=== PATIENT | male | born 1990 | race Two or more races ===

== ENCOUNTER 2018-07-04 12:51 | Emergency (ER) | payer BC, OTHER ==
[~2018-07-04] VITALS: Ht 180.3 cm; Wt 87.1 kg
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
--- NOTE | 2018-07-04 13:34 | NUR ---
FOSTER PA AT BEDSIDE FOR EVAL.
[2018-07-04] MEDS ORDERED: KETOROLAC TROMETHAMINE INJ 60 MG/2 ML VIAL IM ONE ×2 (13:38→14:00)
--- NOTE | 2018-07-04 13:43 | NUR ---
RADIOLOGY AT BEDSIDE FOR R KNEE XRAY.
--- NOTE | 2018-07-04 15:15 | NUR ---
Patient discharged to home in stable condition. Written and verbal after care instructions given. Patient verbalizes understanding of instruction.
[2018-07-04 15:31] VITALS: BP 150/99
== END 2018-07-04 15:15 | disposition home or self-care (01) ==
LOC: ER 12:53
DX: S46.811A Strain of other muscles, fascia and tendons at shoulder and upper arm level, right arm, initial encounter (principal); S80.01XA Contusion of right knee, initial encounter; S20.211A Contusion of right front wall of thorax, initial encounter; M54.5 Low back pain; V49.49XA Driver injured in collision with other motor vehicles in traffic accident, initial encounter; Y93.89 Activity, other specified; Y92.410 Unspecified street and highway as the place of occurrence of the external cause; Y99.8 Other external cause status
CPT/HCPCS: 73564; 96372; 99283; J1885

== ENCOUNTER 2019-01-12 13:05 | Outpatient (CLI) | payer BC, OTHER ==
[2019-01-12 13:19] VITALS: BP 146/101
[2019-01-12 14:19] LABS: BASOPHILS # (AUTO) 0.1 /CMM (0.0-0.2); BASOPHILS % (AUTO) 0.9 % (0.0-2.0); EOSINOPHILS % (AUTO) 1.3 % (0.0-6.0); HEMATOCRIT 50 % (39-51); HEMOGLOBIN 17.9 g/dL (13.5-17.5); LYMPHOCYTES % (AUTO) 28.2 % (20.0-44.0); MEAN CORPUSCULAR HGB CONC 36 g/dl (31.0-36.0); MEAN CORPUSCULAR VOLUME 87 fL (80-96); MONOCYTES % (AUTO) 13.9 % (2.0-12.0); NEUTROPHILS # (AUTO) 3.8 /CMM (1.8-8.9); NEUTROPHILS % (AUTO) 55.7 % (43.0-81.0); PLATELET COUNT (AUTO) 224 /CMM (150-450); RED BLOOD CELL COUNT(AUTO) 5.78 MIL/uL (4.5-6.0); WHITE BLOOD COUNT (AUTO) 6.9 K/uL (4.3-11.0)
[2019-01-12 14:34] LABS: ALBUMIN 4.4 g/dL (3.4-5.0); BILIRUBIN,DIRECT 0.2 mg/dL (0.0-0.2); BILIRUBIN,TOTAL 0.7 mg/dL (0.2-1.0); CALCIUM, SERUM 9.4 mg/dL (8.5-10.1); CREATININE 1.1 mg/dL (0.6-1.3); TOTAL PROTEIN, SERUM 8.1 g/dL (6.4-8.2)
[2019-01-12 14:45] LABS: THYROID STIMULATING HORMONE 1.316 uIU/mL (0.358-3.74)
[2019-01-13 04:06] LABS: HIV SCRN 4G wRFX Non Reactive (Non Reactive)
[2019-01-23 14:58] LABS: *MUMPS AB (IGG) <9.0; RUBELLA ANTIBODIES, IGG 9.13; VARICELLA ZOSTER IgG 828
== END 2019-01-12 23:59 | disposition home or self-care (01) ==
LOC: MSC 13:05
PROVIDERS: ATTEND Internal Medicine
DX: Z00.00 Encounter for general adult medical examination without abnormal findings (principal); F17.200 Nicotine dependence, unspecified, uncomplicated
CPT/HCPCS: 36415; 80048-TC; 80061-TC; 80074; 80076-TC; 82728-TC; 83540-TC; 84443-TC; 85025-TC; 86735; 86762; 86765; 86787

== ENCOUNTER 2019-03-23 10:33 | Outpatient (CLI) | payer BC, OTHER | END 2019-03-23 23:59 | disposition home or self-care (01) | LOC: LAB 10:33 | PROVIDERS: ATTEND Nurse Practitioner Acute Care | DX: Z00.00 Encounter for general adult medical examination without abnormal findings (principal) | CPT/HCPCS: 80305 ==

== ENCOUNTER 2019-09-24 07:24 | Emergency (ER) | payer OTHER ==
[~2019-09-24] VITALS: Ht 170.2 cm; Wt 81.6 kg
[2019-09-24 07:29] VITALS: BP 150/99
--- NOTE | 2019-09-24 23:38 | NUR ---
COVID-19 NEGATIVE PER LAB [facility]
== END 2019-09-24 07:36 | disposition home or self-care (01) ==
LOC: ER 07:25
DX: Z11.59 Encounter for screening for other viral diseases (principal)
CPT/HCPCS: 99283; C9803; U0003

== ENCOUNTER 2020-05-30 12:43 | Outpatient (CLI) | payer BC, OTHER | END 2020-05-30 23:59 | disposition home or self-care (01) | LOC: RAD 12:43 | DX: M25.78 Osteophyte, vertebrae (principal) | CPT/HCPCS: 72040-TC; 72100-TC ==

== ENCOUNTER 2020-08-15 13:47 | Outpatient (CLI) | payer BC, OTHER | END 2020-08-15 23:59 | disposition home or self-care (01) | LOC: LAB 13:47 | DX: Z00.00 Encounter for general adult medical examination without abnormal findings (principal) ==